=== PATIENT | female | born 1970 | race Caucasian/White ===

== ENCOUNTER 2017-04-30 12:39 | Inpatient (IN) | payer MEDICARE ==
[~2017-04-30] VITALS: Ht 154.9 cm; Wt 78.5 kg
[~2017-04-30 12:39] MED LIST: ACETAMINOPHEN325 MG PO; COLACE100 MG PO; CYCLOBENZAPRINE10 MG PO; DEXILANT60 MG PO; DOCUSATE SODIU100 MG PO; ENDOCET 5-3251 EACH PO; FLAGYL500 MG PO; FLEXERIL10 MG PO; FLORASTOR250 MG PO; FLUOXETINE HCL20 M1 PO; HYDROCODON-ACE1 EAC4 PO; HYDROXYZINE PAM25 MG PO; IBUPROFEN800 MG PO; LEVAQUIN500 MG PO; LEVOFLOXACIN500 MG PO; LUNESTA2 MG PO; METRONIDAZOLE500 MG PO; NEURONTIN600 MG PO; NEURONTIN800 MG PO; NICODERM 14MG PA1 EA TD; NICODERM 21MG PA1 EA TD; NICODERM 7MG PAT1 EA TD; NICOTINE PATCH1 EAC4 TD; OMEPRAZOLE20 MG PO; ONDANSETRON HCL4 MG PO; OXYCODONE HCL5 MG PO; OXYCODONE-ACET1 EAC1 PO; PROZAC40 MG PO; VOLTAREN100 GM TP; ZOFRAN2 MG/ML PO; ZOFRAN4 MG PO
[2017-04-30 13:23] LABS: BASO % 0.2 % (0.1-1.2); EOS # 0.1 10_X3_uL (0.0-0.4); EOS % 0.6 % (0.7-5.8); GRAN # 10.5 10_X3_uL (1.6-6.1); GRAN % 78.3 % (34.0-71.1); HEMATOCRIT 42.8 % (34-45); LYMPH # 1.8 10_X3_uL (1.2-3.7); LYMPH % 13.5 % (19.3-51.7); MEAN CORPUSCULAR VOLUME 94.3 fL (79-95); MEAN PLATELET VOLUME 8.7 fl (7.5-11.5); MONO % 7.4 % (4.7-12.5); PLATELET COUNT 326 x10_3/uL (182-369); RED BLOOD COUNT 4.54 x10_6/uL (3.9-5.2); RED CELL DISTRIBUTION WIDTH 13.3 % (11.7-14.4); WHITE BLOOD COUNT 13.4 x10_3/uL (4.0-10.0)
[2017-04-30 13:40] LABS: URINE BILIRUBIN NEGATIVE (NEGATIVE); URINE BLOOD TRACE (NEGATIVE); URINE GLUCOSE (UA) NORMAL (NORMAL); URINE KETONE NEGATIVE (NEGATIVE); URINE LEUKOCYTE ESTERASE TRACE (NEGATIVE); URINE NITRATE NEGATIVE (NEGATIVE); URINE PROTEIN NEGATIVE (NEGATIVE); UROBILINOGEN NORMAL mg/dL (<1.0)
[2017-04-30 13:53] LABS: URINE SQUAMOUS EPITHELIAL CELL 0-10 /[HPF] (NONE SEEN); URINE WBC 0-5 /[HPF] (0-5)
[2017-04-30 13:59] LABS: ALBUMIN 3.8 gm/dL (3.4-5.0); ALKALINE PHOSPHATASE 84 U/L (50-136); ALT/SGPT 13 U/L (3.5-33.9); AMYLASE 87 U/L (15.62-74.58); AST/SGOT 12 U/L (7.04-26.96); BILIRUBIN,TOTAL 0.31 mg/dL (0.0-1.0); BLOOD UREA NITROGEN 12 mg/dL (7-18); CALCIUM 9.4 mg/dL (8.7-10.7); CARBON DIOXIDE 24 mmol/L (21-32); CREATININE 0.7 mg/dL (0.6-1.3); GLUCOSE,RANDOM 113 mg/dL (70-99); LIPASE 50 U/L (6.75-60.75); POTASSIUM 4.1 mmol/L (3.5-5.1); SODIUM 138 mmol/L (136-145); TOTAL PROTEIN 6.6 gm/dL (6.4-8.2)
[2017-05-01 06:19] LABS: HEMATOCRIT 38.2 % (34-45); MEAN CORPUSCULAR HEMOGLOBIN 32.8 pg (27.0-33.0); MEAN CORPUSCULAR VOLUME 96.5 fL (79-95); MEAN PLATELET VOLUME 8.4 fl (7.5-11.5); RED BLOOD COUNT 3.96 x10_6/uL (3.9-5.2); RED CELL DISTRIBUTION WIDTH 13.2 % (11.7-14.4); WHITE BLOOD COUNT 8.6 x10_3/uL (4.0-10.0)
[2017-05-01 06:38] LABS: BLOOD UREA NITROGEN 10 mg/dL (7-18); CALCIUM 9.2 mg/dL (8.7-10.7); CARBON DIOXIDE 26 mmol/L (21-32); CREATININE 0.7 mg/dL (0.6-1.3); GLUCOSE,RANDOM 115 mg/dL (70-99); POTASSIUM 3.8 mmol/L (3.5-5.1); SODIUM 141 mmol/L (136-145)
[2017-05-02 06:23] LABS: HEMATOCRIT 38.4 % (34-45); HEMOGLOBIN 12.8 g/dL (11.2-15.7); MEAN CORPUSCULAR HEMOGLOBIN 32.8 pg (27.0-33.0); MEAN CORPUSCULAR HGB CONC 33.3 g/dL (32.0-36.0); MEAN CORPUSCULAR VOLUME 98.5 fL (79-95); MEAN PLATELET VOLUME 8.7 fl (7.5-11.5); RED BLOOD COUNT 3.9 x10_6/uL (3.9-5.2); RED CELL DISTRIBUTION WIDTH 13.1 % (11.7-14.4); WHITE BLOOD COUNT 6.4 x10_3/uL (4.0-10.0)
[2017-05-02 06:52] LABS: ALBUMIN 3.2 gm/dL (3.4-5.0); ALKALINE PHOSPHATASE 75 U/L (50-136); ALT/SGPT 10 U/L (3.5-33.9); AST/SGOT 13 U/L (7.04-26.96); BLOOD UREA NITROGEN 10 mg/dL (7-18); CARBON DIOXIDE 28 mmol/L (21-32); CREATININE 0.7 mg/dL (0.6-1.3); GLUCOSE,RANDOM 107 mg/dL (70-99); POTASSIUM 4.2 mmol/L (3.5-5.1); SODIUM 141 mmol/L (136-145)
[2017-05-02 06:56] LABS: BILIRUBIN,TOTAL < 0.15 mg/dL (0.0-1.0)
[2017-05-03 06:45] LABS: HEMATOCRIT 37.3 % (34-45); HEMOGLOBIN 12.5 g/dL (11.2-15.7); MEAN CORPUSCULAR HEMOGLOBIN 32.8 pg (27.0-33.0); MEAN CORPUSCULAR HGB CONC 33.5 g/dL (32.0-36.0); MEAN CORPUSCULAR VOLUME 97.9 fL (79-95); MEAN PLATELET VOLUME 8.3 fl (7.5-11.5); RED BLOOD COUNT 3.81 x10_6/uL (3.9-5.2); RED CELL DISTRIBUTION WIDTH 12.9 % (11.7-14.4); WHITE BLOOD COUNT 6.5 x10_3/uL (4.0-10.0)
[2017-05-03 07:01] LABS: ALBUMIN 3.4 gm/dL (3.4-5.0); ALKALINE PHOSPHATASE 71 U/L (50-136); ALT/SGPT 10 U/L (3.5-33.9); AST/SGOT 11 U/L (7.04-26.96); BILIRUBIN,TOTAL < 0.15 mg/dL (0.0-1.0); BLOOD UREA NITROGEN 10 mg/dL (7-18); CALCIUM 8.9 mg/dL (8.7-10.7); CARBON DIOXIDE 30 mmol/L (21-32); CREATININE 0.8 mg/dL (0.6-1.3); GLUCOSE,RANDOM 103 mg/dL (70-99); POTASSIUM 4.1 mmol/L (3.5-5.1); SODIUM 139 mmol/L (136-145)
[2017-05-04 07:22] LABS: HEMATOCRIT 36.6 % (34-45); HEMOGLOBIN 12.3 g/dL (11.2-15.7); MEAN CORPUSCULAR HEMOGLOBIN 32.5 pg (27.0-33.0); MEAN CORPUSCULAR HGB CONC 33.6 g/dL (32.0-36.0); MEAN CORPUSCULAR VOLUME 96.6 fL (79-95); MEAN PLATELET VOLUME 8.5 fl (7.5-11.5); RED BLOOD COUNT 3.79 x10_6/uL (3.9-5.2); RED CELL DISTRIBUTION WIDTH 12.7 % (11.7-14.4); WHITE BLOOD COUNT 5.2 x10_3/uL (4.0-10.0)
[2017-05-04 07:55] LABS: BLOOD UREA NITROGEN 13 mg/dL (7-18); CALCIUM 8.9 mg/dL (8.7-10.7); CARBON DIOXIDE 30 mmol/L (21-32); CREATININE 0.7 mg/dL (0.6-1.3); GLUCOSE,RANDOM 103 mg/dL (70-99); POTASSIUM 4.1 mmol/L (3.5-5.1); SODIUM 140 mmol/L (136-145)
[2017-05-05 07:08] LABS: HEMATOCRIT 36.2 % (34-45); HEMOGLOBIN 12.3 g/dL (11.2-15.7); MEAN CORPUSCULAR HEMOGLOBIN 32.8 pg (27.0-33.0); MEAN CORPUSCULAR VOLUME 96.5 fL (79-95); MEAN PLATELET VOLUME 8.4 fl (7.5-11.5); RED BLOOD COUNT 3.75 x10_6/uL (3.9-5.2); RED CELL DISTRIBUTION WIDTH 12.6 % (11.7-14.4)
[2017-05-05 07:24] LABS: ALBUMIN 3.3 gm/dL (3.4-5.0); ALKALINE PHOSPHATASE 72 U/L (50-136); ALT/SGPT 9 U/L (3.5-33.9); AST/SGOT 13 U/L (7.04-26.96); BLOOD UREA NITROGEN 11 mg/dL (7-18); CALCIUM 9.2 mg/dL (8.7-10.7); CARBON DIOXIDE 30 mmol/L (21-32); CREATININE 0.9 mg/dL (0.6-1.3); GLUCOSE,RANDOM 102 mg/dL (70-99); POTASSIUM 4.3 mmol/L (3.5-5.1); SODIUM 142 mmol/L (136-145); TOTAL PROTEIN 5.9 gm/dL (6.4-8.2)
[2017-05-05 07:30] LABS: BILIRUBIN,TOTAL < 0.15 mg/dL (0.0-1.0)
== END 2017-05-05 13:41 | disposition home or self-care (01) | DRG 392 ==
LOC: ER 12:39 → MS 15:59 → UNDODEPER 05-01 15:39 → MS 05-05 13:41
PROVIDERS: Family Medicine; ADMIT Family Medicine
DX: K57.32 Diverticulitis of large intestine without perforation or abscess without bleeding (principal); K76.89 Other specified diseases of liver; R11.2 Nausea with vomiting, unspecified; J44.9 Chronic obstructive pulmonary disease, unspecified; F17.210 Nicotine dependence, cigarettes, uncomplicated; Z79.891 Long term (current) use of opiate analgesic; Z79.899 Other long term (current) drug therapy; K59.00 Constipation, unspecified; R12 Heartburn
CPT/HCPCS: 36415; 80048; 80053; 81001; 82150; 83690; 83735; 85025; 96361; 96372; 96374; 99070; 99284; 99285-25; J1170; J7040; Q0169; Q9967

== ENCOUNTER 2017-04-30 12:39 | Emergency (ER) | payer MEDICARE | END 2017-04-30 15:59 | disposition other institution (70) | LOC: ER 12:39 | DX: R10.32 Left lower quadrant pain (principal); R19.7 Diarrhea, unspecified; F17.210 Nicotine dependence, cigarettes, uncomplicated; Z90.49 Acquired absence of other specified parts of digestive tract; Z87.19 Personal history of other diseases of the digestive system; Z79.891 Long term (current) use of opiate analgesic; Z79.899 Other long term (current) drug therapy | CPT/HCPCS: 96372; 99284; 99285-25 ==